=== PATIENT | female | born 1990 | race Caucasian/White ===

== ENCOUNTER 2017-09-23 11:29 | Day surgery (SDC) | payer OTHER ==
[~2017-09-23 11:29] MED LIST: CEFAZOLIN 2 GM/50 ML (PMX) 50 ML IVPB; SOD CHLORIDE 0.9% 1,000 ML IV; SUCCINYLCHOLINE CHLORIDE 100 MG/5 ML SYG IV
[2017-09-23] MEDS ORDERED: FENTAnyl 50 MCG/ML VIAL IV ×2 (14:00)
[2017-09-23] MEDS ORDERED: DIPHENHYDRAMINE 50 MG INJ IV (14:00)
[2017-09-23] MEDS ORDERED: METOCLOPRAMIDE 10 MG INJ IV (14:00)
[2017-09-23] MEDS ORDERED: HYDROmorphONE 1 MG/5 ML IV SYRINGE IV (14:00)
[2017-09-23] MEDS ORDERED: ALBUTEROL 0.083% (NEB) 2.5 MG/3 ML AMP HHN (14:00)
[2017-09-23] MEDS ORDERED: ONDANSETRON 4 MG INJ IV (14:00)
[2017-09-23] MEDS ORDERED: FENTAnyl 50 MCG/ML VIAL (14:35)
[2017-09-23] MEDS ORDERED: ROCURONIUM 50 MG INJ (14:58)
[2017-09-23] MEDS ORDERED: LIDOCAINE 1% (MDV) 20 ML INJ (14:58)
[2017-09-23] MEDS ORDERED: PROPOFOL 20 ML (14:58)
[2017-09-23] MEDS ORDERED: CEFAZOLIN 1 GM INJ (14:58)
[2017-09-23] MEDS ORDERED: SUGAMMADEX SODIUM 200 MG/2 ML VIAL IV (14:58)
[2017-09-23] MEDS ORDERED: SUCCINYLCHOLINE CHLORIDE 100 MG/5 ML SYG IV (14:58)
[2017-09-23] MEDS: BUPIVACAINE 0.25% (MPF) 30 ML INJ (15:00)
[2017-09-23] MEDS: MEPERIDINE 25 MG INJ IV (15:49)
[2017-09-23] MEDS: HYDROmorphONE 1 MG/5 ML IV SYRINGE IV ×2 (15:55→16:10)
[2017-09-23] MEDS: HYDROCODONE/APAP (5/325) TAB PO (16:15)
== END 2017-09-26 12:13 | disposition home or self-care (01) ==
LOC: SDS 11:29
DX: K80.10 Calculus of gallbladder with chronic cholecystitis without obstruction (principal)
CPT/HCPCS: 47562; 88304